=== PATIENT | male | born 1960 | race Caucasian/White ===

== ENCOUNTER 2018-06-24 15:49 | Emergency (ER) | payer BC ==
[~2018-06-24] VITALS: Ht 180.3 cm; Wt 82.6 kg
[~2018-06-24 15:49] MED LIST: ASPI-1153 PO; IRBE1TAB11 PO; NIAC500T2 PO; ROSU5TAB PO
[2018-06-24 15:55] VITALS: BP_SYST 168
--- NOTE | 2018-06-24 15:55 | NUR ---
BROUGHT BACK TO BED #5 AND TRIAGED. REPORT GIVEN TO
--- NOTE | 2018-06-24 16:10 | NUR ---
ER at bedside examining patient.
--- NOTE | 2018-06-24 16:12 | NUR ---
Patient presented to ER with palpatations and chest pressure. Patient ambulatory to ER, patients' with patient. Patient A&Ox4, afebrile, respirations equal bilat. Patient states he came to the ER with palpatations that started today at 0500 while he was at work, pt states he attributed palpatations to coffee intake; as the day went on patient palpataions did not subside and chest pressure became uncomfortable, came to ER.
--- NOTE | 2018-06-24 17:10 | NUR ---
Radiology at bedside for portable x-ray
[2018-06-24 17:34] LABS: HEMATOCRIT 44.2 % (36-54); HEMOGLOBIN 15.1 g/dL (14.0-18.0); MEAN CORPUSCULAR HEMOGLOBIN 31 pg (27-31); MEAN CORPUSCULAR HGB CONC 34 % (32-36); MEAN CORPUSCULAR VOLUME 91 fL (79.0-98.0); RED BLOOD CELL COUNT(AUTO) 4.88 MIL/uL (4.2-6.2); RED CELL DISTRIBUTION WIDTH 13.9 % (9.0-15.0); WHITE BLOOD COUNT (AUTO) 6.7 K/uL (4.8-10.8)
[2018-06-24 17:35] LABS: BASOPHILS % (AUTO) 0.7 % (0.0-2.0); EOSINOPHILS # (AUTO) 0.3 K/uL (0.0-0.4); EOSINOPHILS % (AUTO) 4.7 % (0.0-4.0); LYMPHOCYTES # (AUTO) 2.4 K/uL (1.0-5.5); LYMPHOCYTES % (AUTO) 36.6 % (20.5-51.5); MONOCYTES # (AUTO) 0.5 K/uL (0.0-1.0); MONOCYTES % (AUTO) 6.8 % (1.7-9.3); NEUTROPHILS # (AUTO) 3.4 K/uL (1.8-7.7); NEUTROPHILS % (AUTO) 51.2 % (40.0-70.0); PLATELET COUNT (AUTO) 216 K/uL (130-430)
[2018-06-24 17:51] LABS: ANION GAP 9 (5-15); CALCIUM 9.1 mg/dL (8.4-11.0); CHLORIDE 102 mmol/L (98-107); CREATININE 0.86 mg/dL (0.55-1.30); GLUCOSE 94 mg/dL (70-99); POTASSIUM 3.8 mmol/L (3.5-5.1); SODIUM SERUM 141 mmol/L (136-145); UREA NITROGEN, BLOOD 14 mg/dL (8-21)
[2018-06-24 17:54] LABS: GFR AFRICAN AMERICAN 117 mL/min (>90)
[2018-06-24 18:06] LABS: ALANINE AMINOTRANSFERASE 34 U/L (12-78); ALBUMIN 3.8 g/dL (3.4-4.8); ASPARTATE AMINOTRANSFERASE 21 U/L (10-37); FREE T4 (FREE THYROXINE) 0.8 ng/dl (0.8-1.5); TOTAL BILIRUBIN 1.1 mg/dL (0.0-1.0)
--- NOTE | 2018-06-24 18:45 | NUR ---
Dr. Alcaraz at bedside discussing Lab results.
--- NOTE | 2018-06-24 18:57 | NUR ---
Patient given written and verbal discharge instructions and verbalizes understanding. ER MD discussed with patient the results and treatment provided. Patient in stable condition. ID arm band removed. Rx of given. Patient educated on pain management and to follow up with PMD. Pain Scale 0/10. Opportunity for questions provided and answered. Medication side effect fact sheet provided.
[2018-06-24 19:09] VITALS: BP_SYST 168
== END 2018-06-24 18:57 | disposition home or self-care (01) ==
LOC: SED 15:49
DX: R00.2 Palpitations (principal); I10 Essential (primary) hypertension; E78.00 Pure hypercholesterolemia, unspecified; Z79.82 Long term (current) use of aspirin; Z79.899 Other long term (current) drug therapy
CPT/HCPCS: 36415; 71045; 80053; 82550-TC; 84439; 84443-TC; 84484; 85025; 93005; 99284

== ENCOUNTER 2021-03-18 11:26 | Inpatient (IN) | payer BC, SELFPAY ==
[~2021-03-18] VITALS: Ht 177.8 cm; Wt 80.3 kg
[2021-03-18 11:26] VITALS: BP_SYST 124
[~2021-03-18 11:26] MED LIST changes: -ASPI-1153 PO; +ASPI-1393 PO
--- NOTE | 2021-03-18 11:26 | NUR ---
Placed in room 4 . Placed on general ledger accountant, blood pressure machine and pulse oximeter. To gown for exam. Side rails up. Report given to .
--- NOTE | 2021-03-18 11:30 | NUR ---
PATIENT PRESENTED FROM HOME WITH C/O CHEST PRESSURE THAT STARTED 0200. PMHX: HL, HTN, CARDIAC STENT PLACEMENT X2. PATIENT STATED HE TOOK HIS REGULAR BP MEDS, BUT WAS ALSO NOTED TO HAVE A SBP <90, WHICH IS UNUSUAL AND NOT BASELINE.
--- NOTE | 2021-03-18 11:30 | NUR ---
ER at bedside examining patient.
[2021-03-18] MEDS ORDERED: METO50TA7 PO (11:41)
[2021-03-18] MEDS ORDERED: NOR10 PO (11:41)
[2021-03-18] MEDS ORDERED: LOSA1TAB40 PO (11:41)
[2021-03-18] MEDS ORDERED: LIP80 PO (11:41)
[2021-03-18] MEDS ORDERED: CLOP75TA32 PO (11:41)
--- NOTE | 2021-03-18 11:42 | NUR ---
Medication reconciliation completed with information provided by pt. Any prior medication reconciliation on file was reviewed and corrected.
--- NOTE | 2021-03-18 11:43 | NUR ---
labs drawn, radiology here for chest xray
[2021-03-18 12:02] LABS: CREATININE 0.87 mg/dL (0.55-1.30); POTASSIUM 3.8 mmol/L (3.5-5.1)
[2021-03-18 12:06] LABS: BASOPHILS # (AUTO) 0.1 K/uL (0.0-0.2); BASOPHILS % (AUTO) 0.7 % (0.0-2.0); EOSINOPHILS # (AUTO) 0.3 K/uL (0.0-0.4); EOSINOPHILS % (AUTO) 3.4 % (0.0-4.0); HEMATOCRIT 43.7 % (36-54); LYMPHOCYTES # (AUTO) 2.7 K/uL (1.0-5.5); LYMPHOCYTES % (AUTO) 31.9 % (20.5-51.5); MEAN CORPUSCULAR HEMOGLOBIN 31 pg (27-31); MEAN CORPUSCULAR HGB CONC 34 % (32-36); MEAN CORPUSCULAR VOLUME 89 fL (79.0-98.0); MONOCYTES # (AUTO) 0.6 K/uL (0.0-1.0); MONOCYTES % (AUTO) 6.5 % (1.7-9.3); NEUTROPHILS # (AUTO) 4.9 K/uL (1.8-7.7); NEUTROPHILS % (AUTO) 57.5 % (40.0-70.0); PLATELET COUNT (AUTO) 255 K/uL (130-430); RED BLOOD CELL COUNT(AUTO) 4.92 MIL/uL (4.2-6.2); RED CELL DISTRIBUTION WIDTH 13.6 % (9.0-15.0); WHITE BLOOD COUNT (AUTO) 8.5 K/uL (4.8-10.8)
[2021-03-18 12:08] LABS: ALBUMIN 3.7 g/dL (3.4-4.8); TOTAL BILIRUBIN 1.2 mg/dL (0.0-1.0)
[2021-03-18] MEDS ORDERED: dilTIAZem HCL IVP 5 MG/ML VIAL IVP ONE (12:15)
[2021-03-18] MEDS ORDERED: DILTIAZEM HCL 60 MG TABLET PO ONE (12:15)
[2021-03-18] MEDS ORDERED: *LOVENOX 1MG/KG Q12H/PHARMACY XX SCH (13:45)
[2021-03-18] MEDS ORDERED: ENOXAPARIN SODIUM 80 MG/0.8 ML SYRINGE SUBCUT ONE (14:00)
[2021-03-18] MEDS ORDERED: AMIODARONE HCL 200 MG TABLET PO ONE (14:00)
[2021-03-18] MEDS ORDERED: CLOPIDOGREL BISULFATE 75 MG TABLET PO ONE (15:00)
[2021-03-18] MEDS ORDERED: ATORVASTATIN 20 MG TABLET PO ONE (15:00)
[2021-03-18] MEDS ORDERED: ASPIRIN 81 MG TAB.CHEW PO ONE (15:00)
[2021-03-18] MEDS ORDERED: METOPROLOL SUCCINATE 50 MG TAB.SR.24H (TOPROL XL) PO ONE (16:45)
[2021-03-18 16:50] LABS: INR 1.1 (0.80-1.20); PROTHROMBIN TIME 11.6 SECS (9.5-12.5)
--- NOTE | 2021-03-18 18:05 | NUR ---
Pt arrive on unit: Pt transported via gurney to room. Pt is A/Ox4, no s/s of cardiac or respiratory distress. VVS, Right forarm 20 G, resting in bed. Dr. Ortiz placed pt on cardiac diet, waiting for dinner. Orders for tomorrow in place, will endorse to shift commander. Addendum: 03/18/21 at 1853 by Kayli Burgos RN recieved pt from Mohinder JOLLY from .
[2021-03-18 18:30] VITALS: BP_SYST 126
--- NOTE | 2021-03-18 19:30 | NUR ---
CHANGE OF SHIFT; endorsed by day shift, new admission for c/o chest pain DX atrial fib with RVR. no distress. will continue to admit. call light within reach. pt. still waiting for dinner , day shift nurse said they called for a tray but never came instead gave 2 sandwiches, jello and juice.
[2021-03-18 21:00] VITALS: BP_SYST 113; BP_SYST 126
[2021-03-18] MEDS ORDERED: AMIODARONE HCL 200 MG TABLET PO SCH (21:00)
--- NOTE | 2021-03-18 21:00 | NUR ---
NOTYES: pt. dozing off, VS checked and will give medications. pt. ambulated to the restroom and voided. tele box not working when received, changed cable and patches, on atrial rapid 100-130's. denies any chest pain. on room air. IV lock on rt. forearm.
[2021-03-18] MEDS: NORMAL SALINE 5 ML DISP.SYRIN IVF SCH ×2 (21:34→21:44)
[2021-03-19] MEDS ORDERED: ENOXAPARIN SODIUM 80 MG/0.8 ML SYRINGE SUBCUT SCH
--- NOTE | 2021-03-19 00:15 | NUR ---
NOTES: pt. was already sleeping and woke for medications. pt. converted to sinus rhythm. kept warm with blanket.
[2021-03-19 00:45] LABS: ALANINE AMINOTRANSFERASE 32 U/L (12-78); ALBUMIN 3.3 g/dL (3.4-4.8); ANION GAP 6 (5-15); ASPARTATE AMINOTRANSFERASE 24 U/L (10-37); CALCIUM 8.6 mg/dL (8.4-11.0); CHLORIDE 104 mmol/L (98-107); CREATININE 0.75 mg/dL (0.55-1.30); GLUCOSE 119 mg/dL (70-99); POTASSIUM 3.5 mmol/L (3.5-5.1); SODIUM SERUM 138 mmol/L (136-145); TOTAL BILIRUBIN 1.2 mg/dL (0.0-1.0); UREA NITROGEN, BLOOD 17 mg/dL (8-21)
[2021-03-19 00:47] LABS: GFR AFRICAN AMERICAN 135 mL/min (>90)
[2021-03-19 01:01] LABS: CHOLESTEROL 134 mg/dL (<200); HDL CHOLESTEROL 40 mg/dL (>45); LDL CHOLESTEROL 70 mg/dL (<100); TRIGLYCERIDES 167 mg/dL (30-150)
--- NOTE | 2021-03-19 03:30 | NUR ---
NOTES: condition observed. continue to monitor. pt. remain sleeping.
[2021-03-19] MEDS: NORMAL SALINE 5 ML DISP.SYRIN IVF SCH ×2 (06:00→06:41)
--- NOTE | 2021-03-19 06:34 | NUR ---
CLOSING NOTES; pt. remain chest pain free. IV lock patent. will endorse to incoming shift. for further observation. on sinus rhythm. call light at bedside.
[2021-03-19 07:00] VITALS: BP_SYST 128
--- NOTE | 2021-03-19 07:45 | NUR ---
OPENING NOTE PT asleep with no s/s of respiratory distress. Sinus rhythm on monitor, allowed PT to sleep. Safety checks done and call light within reach.
[2021-03-19 07:47] LABS: BASOPHILS # (AUTO) 0.1 K/uL (0.0-0.2); BASOPHILS % (AUTO) 0.9 % (0.0-2.0); EOSINOPHILS # (AUTO) 0.3 K/uL (0.0-0.4); EOSINOPHILS % (AUTO) 4.3 % (0.0-4.0); HEMATOCRIT 42.5 % (36-54); HEMOGLOBIN 14.7 g/dL (14.0-18.0); LYMPHOCYTES # (AUTO) 2.6 K/uL (1.0-5.5); LYMPHOCYTES % (AUTO) 38.6 % (20.5-51.5); MEAN CORPUSCULAR HEMOGLOBIN 31 pg (27-31); MEAN CORPUSCULAR HGB CONC 35 % (32-36); MEAN CORPUSCULAR VOLUME 89 fL (79.0-98.0); MONOCYTES # (AUTO) 0.4 K/uL (0.0-1.0); MONOCYTES % (AUTO) 6.4 % (1.7-9.3); NEUTROPHILS # (AUTO) 3.3 K/uL (1.8-7.7); NEUTROPHILS % (AUTO) 49.8 % (40.0-70.0); PLATELET COUNT (AUTO) 234 K/uL (130-430); WHITE BLOOD COUNT (AUTO) 6.7 K/uL (4.8-10.8)
[2021-03-19] MEDS ORDERED: ATORVASTATIN 20 MG TABLET PO SCH (09:00)
[2021-03-19] MEDS ORDERED: ASPIRIN 81 MG TAB.CHEW PO SCH (09:00)
[2021-03-19] MEDS ORDERED: CLOPIDOGREL BISULFATE 75 MG TABLET PO SCH (09:00)
[2021-03-19] MEDS ORDERED: APIXABAN 2.5 MG TABLET PO SCH (09:00)
[2021-03-19] MEDS ORDERED: AMIODARONE HCL 200 MG TABLET PO SCH (09:00)
[2021-03-19] MEDS ORDERED: LOSARTAN POTASSIUM 50 MG TABLET (COZAAR) PO SCH (09:00)
[2021-03-19] MEDS ORDERED: METOPROLOL SUCCINATE 50 MG TAB.SR.24H (TOPROL XL) PO SCH (09:00)
[2021-03-19 11:34] VITALS: BP_SYST 120
[2021-03-19 11:45] VITALS: BP_SYST 120
[2021-03-19] MEDS ORDERED: AMIO200T66 PO (11:48)
[2021-03-19] MEDS ORDERED: APIX5TAB PO (11:49)
--- NOTE | 2021-03-19 12:20 | NUR ---
D/C Patient Patient given medication reconciliation form and D/C instructions. Exit Care provided. Patient verbalized understanding. MD discussed with patient the results and treatment provided. Ambulatory with steady gait for discharge to home. Patient in stable condition, ID band removed. IV catheter removed, intact and dressing applied, no active bleeding. Rx of amiodarone and eliquis given. Patient educated on pain management. All belongings sent with patient.
== END 2021-03-19 12:20 | disposition home or self-care (01) | DRG 310 ==
LOC: SED 11:26 → STU 13:35
PROVIDERS: ADMIT Internal Medicine Cardiovascular Disease; ATTEND Internal Medicine Cardiovascular Disease
DX: I48.0 Paroxysmal atrial fibrillation (principal); I10 Essential (primary) hypertension; I25.10 Atherosclerotic heart disease of native coronary artery without angina pectoris; E78.5 Hyperlipidemia, unspecified; F17.200 Nicotine dependence, unspecified, uncomplicated; Z20.822 Contact with and (suspected) exposure to COVID-19; Z79.01 Long term (current) use of anticoagulants; Z95.5 Presence of coronary angioplasty implant and graft
CPT/HCPCS: 36415; 71045; 80053; 80061; 83735; 83880; 84439; 84443; 84480; 84484; 85025; 85610-TC; 93005; 93306; G0378; J1650; J3490